=== PATIENT | male | born 1960 | race African-American/Black ===

== ENCOUNTER 2017-10-05 12:12 | Emergency (ER) | payer MEDICAID, OTHER ==
[~2017-10-05] VITALS: Ht 175.3 cm; Wt 96.2 kg
[2017-10-05 14:23] LABS: Urine Bacteria NONE SEEN /hpf (None Seen); Urine Blood Negative /uL (Negative); Urine Mucus FEW (None Seen); Urine Specific Gravity 1.028 (1.001-1.035); Urine WBC 8 /hpf (0 - 3)
[2017-10-05 14:46] LABS: Alcohol, Urine < 3.0 mg/dL (0-5); Amphetamine Screen, Urine NEGATIVE (NEGATIVE); Barbiturate Scree,Urine NEGATIVE (NEGATIVE); Benzodiazephine Screen, Urine NEGATIVE (NEGATIVE); Cannabinoid Screen, Urine POSITIVE (NEGATIVE); Cocaine Screen, Urine POSITIVE (NEGATIVE); Opiate Scree,Urine NEGATIVE (NEGATIVE); Phencyclidine Screen, Urine NEGATIVE (NEGATIVE)
[2017-10-05 14:49] LABS: Basophils # (auto) 0 uL; Basophils % (auto) 0.8 % (0.0-2.0); Eosinophils # (auto) 0 uL; Eosinophils % (auto) 0.6 % (0.0-7.0); Hematocrit 46.7 % (41.0-53.0); Hemoglobin 15.9 g/dL (13.5-17.5); Lymphocytes # (auto) 2.1 uL; Lymphocytes % (auto) 41.3 % (10.0-50.0); Mean Corpuscular Hemoglobin 30.6 pg (28.0-32.0); Mean Corpuscular Hgb Conc. 34.1 g/dL (32.0-36.0); Mean Corpuscular Volume 89.7 fL (80.0-100.0); Monocytes # (auto) 0.5 uL; Monocytes % (auto) 10.3 % (0.0-12.0); Neutrophils # (auto) 2.4 uL; Nucleated Red Blood Cells % 0.1 %; Platelet Count (auto) 166 10^3/uL (140-450); White Blood Cell 5.1 10^3/uL (4.4-10.8)
[2017-10-05 15:08] LABS: Albumin 3.6 g/dL (3.4-5.0); BUN/Creatinine Ratio 12.4; Calcium 8.3 mg/dL (8.5-10.1); Potassium 4.3 mmol/L (3.5-5.1)
[2017-10-05 15:17] LABS: Bilirubin, Total 0.9 mg/dL (0.2-1.0); Total Protein 8.1 g/dL (6.4-8.2)
[2017-10-05 23:00] VITALS: BP 120/71
[2017-10-06] MEDS ORDERED: MAGNESIUM CITRATE SOLUTION 300 ML BTL PO ONE (01:00)
== END 2017-10-06 01:58 | disposition home or self-care (01) ==
LOC: ER 12:16
DX: M47.892 Other spondylosis, cervical region (principal); M54.12 Radiculopathy, cervical region; K29.00 Acute gastritis without bleeding; M48.02 Spinal stenosis, cervical region; K59.00 Constipation, unspecified; F17.210 Nicotine dependence, cigarettes, uncomplicated; F12.10 Cannabis abuse, uncomplicated; F14.10 Cocaine abuse, uncomplicated
CPT/HCPCS: 36415; 70450; 72125; 74176; 80053; 80307; 81001; 83690; 85025; 85379; 93005

== ENCOUNTER 2018-03-09 14:48 | Emergency (ER) | payer MEDICAID ==
[~2018-03-09] VITALS: Ht 175.3 cm; Wt 98.0 kg
[2018-03-09 15:35] LABS: Basophils # (auto) 0 uL; Basophils % (auto) 0.4 % (0.0-2.0); Eosinophils # (auto) 0 uL; Eosinophils % (auto) 0.8 % (0.0-7.0); Hematocrit 44.6 % (41.0-53.0); Hemoglobin 14.7 g/dL (13.5-17.5); Lymphocytes # (auto) 2.8 uL; Lymphocytes % (auto) 48.9 % (10.0-50.0); Mean Corpuscular Hemoglobin 29.6 pg (28.0-32.0); Mean Corpuscular Hgb Conc. 32.9 g/dL (32.0-36.0); Monocytes # (auto) 0.7 uL; Monocytes % (auto) 11.5 % (0.0-12.0); Neutrophils # (auto) 2.2 uL; Neutrophils % (auto) 38.4 % (37.0-80.0); Nucleated Red Blood Cells % 0.1 %; Platelet Count (auto) 160 10^3/uL (140-450); Red Blood Cells 4.96 10^6/uL (4.5-5.90); Red Cell Distribution Width 14.2 % (11.8-14.3); White Blood Cell 5.8 10^3/uL (4.4-10.8)
[2018-03-09 15:40] LABS: INR 0.97 (0.9-1.15); Partial Thromboplastin Time 27.1 sec (23.78-33.04); Prothrombin Time 10.4 sec (9.27-12.13)
[2018-03-09 15:44] LABS: Blood Urea Nitrogen 18 mg/dL (7-18); Chloride 108 mmol/L (98-107); Sodium 142 mmol/L (136-145)
[2018-03-09 15:50] LABS: Alanine Aminotransferase 38 U/L (16-61); Albumin 3.3 g/dL (3.4-5.0); Alkaline Phosphatase 90 U/L (45-117); Anion Gap 2 (5-15); Aspartate Aminotransferase 32 U/L (15-37); BUN/Creatinine Ratio 16.2; Bilirubin, Total 0.6 mg/dL (0.2-1.0); Carbon Dioxide 32 mmol/L (21-32); GFR African American > 60 mL/min; GFR Non-African American > 60 mL/min; Glucose 94 mg/dL (74-106); Total Protein 7.1 g/dL (6.4-8.2)
[2018-03-09 17:21] VITALS: BP 151/106
== END 2018-03-09 17:22 | disposition home or self-care (01) ==
LOC: ER 14:51
DX: K92.1 Melena (principal); F17.210 Nicotine dependence, cigarettes, uncomplicated; Z85.038 Personal history of other malignant neoplasm of large intestine
CPT/HCPCS: 36415; 80053; 85025; 85610; 85730

== ENCOUNTER 2022-06-08 11:03 | Inpatient (IN) | payer MEDICAID ==
[~2022-06-08] VITALS: Ht 175.9 cm; Wt 93.2 kg
[2022-06-08] MEDS ORDERED: ONDANSETRON HCL 4 MG/2 ML VIAL IV ONE (11:30)
[2022-06-08] MEDS ORDERED: PANTOPRAZOLE 40 MG/10 ML VIAL INJ IV ONE ×2 (11:30→17:00)
[2022-06-08] MEDS ORDERED: SODIUM CHLORIDE 0.9% 1,000 ML IVB ONE (11:30)
[2022-06-08 11:58] LABS: Basophils # (auto) 0 10 ^3/uL (0-0.2); Basophils % (auto) 0.6 % (0.0-2.0); Eosinophils # (auto) 0 10 ^3/uL (0-0.8); Eosinophils % (auto) 0.7 % (0.0-7.0); Hemoglobin 15.2 g/dL (13.5-17.5); Lymphocytes # (auto) 1.9 10 ^3/uL (0.4-5.4); Lymphocytes % (auto) 42.6 % (10.0-50.0); Mean Corpuscular Hemoglobin 28.8 pg (28.0-32.0); Mean Corpuscular Hgb Conc. 33.1 g/dL (32.0-36.0); Mean Corpuscular Volume 86.9 fL (80.0-100.0); Monocytes # (auto) 0.4 10 ^3/uL (0-1.3); Neutrophils # (auto) 2.1 10 ^3/uL (1.6-8.6); Neutrophils % (auto) 48.1 % (37.0-80.0); Nucleated Red Blood Cells % 0.2 %; Red Cell Distribution Width 14.9 % (11.8-14.3); White Blood Cell 4.4 10^3/uL (4.4-10.8)
[2022-06-08 11:58] LABS: Urine WBC None Seen /hpf (0 - 3)
[2022-06-08 12:07] LABS: Urine Bacteria NONE SEEN /hpf (None Seen); Urine Blood Negative /uL (Negative); Urine Specific Gravity 1.023 (1.001-1.035)
[2022-06-08 12:16] LABS: Albumin 3.7 g/dL (3.4-5.0); Calcium 9.4 mg/dL (8.5-10.1); Potassium 4.5 mmol/L (3.5-5.1)
[2022-06-08 12:20] LABS: BUN/Creatinine Ratio 17.2 (10.0-20.0); Bilirubin, Total 0.5 mg/dL (0.2-1.0); Total Protein 7.3 g/dL (6.4-8.2)
[2022-06-08] MEDS ORDERED: MORPHINE SULFATE 4 MG/ML SYR/VIAL IV ONE (12:45)
[2022-06-08] MEDS ORDERED: CLON0.1T PO (16:59)
[2022-06-08] MEDS ORDERED: LOSA-69 PO (16:59)
[2022-06-08] MEDS ORDERED: AMLO-489 PO (16:59)
[2022-06-08] MEDS ORDERED: ONDANSETRON HCL 4 MG/2 ML VIAL IV PRN (17:00)
[2022-06-08] MEDS ORDERED: hydrALAZINE HCL 20 MG/ML VL IV PRN (17:00)
[2022-06-08] MEDS ORDERED: IPRATROPIUM BROM 0.5 MG/2.5ML INH SOL NEB PRN (17:15)
[2022-06-08] MEDS ORDERED: ALBUTEROL SULF 2.5 MG/0.5ML(0.5%) NEB SOLN NEB PRN (17:15)
[2022-06-08 17:42] LABS: Cholesterol 169 mg/dL (< 200); HDL Cholesterol 54 mg/dL (40-59); LDL Cholesterol 100 mg/dL (< 100); Triglycerides 89 mg/dL (< 150)
[2022-06-08 19:28] VITALS: BP 146/90
[2022-06-08] MEDS: SODIUM CHLORIDE 0.9% 1,000 ML IV SCH (19:42)
[2022-06-09] MEDS: amLODIPine BESYLATE 5 MG TAB PO SCH ×3 (00:09→22:01)
[2022-06-09] MEDS: cloNIDine HCL 0.1 MG TAB PO SCH ×3 (00:09→13:37)
[2022-06-09] MEDS: LOSARTAN POTASSIUM 50 MG TAB PO SCH ×3 (00:09→22:15)
[2022-06-09] MEDS: SODIUM CHLORIDE 0.9% 1,000 ML IV SCH ×3 (01:05→18:54)
[2022-06-09 06:02] LABS: Hematocrit 42.7 % (41.0-53.0); Hemoglobin 14.2 g/dL (13.5-17.5); Mean Corpuscular Hemoglobin 28.8 pg (28.0-32.0); Mean Corpuscular Hgb Conc. 33.2 g/dL (32.0-36.0); Mean Corpuscular Volume 86.8 fL (80.0-100.0); Red Blood Cells 4.92 10^6/uL (4.5-5.90); Red Cell Distribution Width 14.5 % (11.8-14.3); White Blood Cell 4.9 10^3/uL (4.4-10.8)
[2022-06-09 06:08] LABS: Band Neutrophils % (manual) 0; Basophils % (manual) 0 (0.0-2.0); Blast Cells 0; Eosinophils % (manual) 0 (0-7); Metamyelocytes % 0; Myelocytes % 0; Promyelocytes % 0; Reactive Lymphocytes 0
[2022-06-09 06:28] LABS: Albumin 3.1 g/dL (3.4-5.0); Calcium 8.4 mg/dL (8.5-10.1)
[2022-06-09 06:33] LABS: BUN/Creatinine Ratio 16.5 (10.0-20.0); Total Protein 6.4 g/dL (6.4-8.2)
[2022-06-09 06:57] LABS: Lymphocytes % (manual) 69 (10.0-50.0); Monocytes % (manual) 6 (0-12)
[2022-06-09] MEDS: ENOXAPARIN SOD 40 MG/0.4 ML SYRINGE SC SCH (10:00)
[2022-06-09] MEDS: PANTOPRAZOLE 40 MG/10 ML VIAL INJ IV SCH (10:13)
[2022-06-09] MEDS: NICOTINE 7MG/24HR TOPICAL PATCH TD SCH (10:15)
[2022-06-09 13:30] VITALS: BP 115/85
[2022-06-09] MEDS ORDERED: FLUO20CA90 PO (14:05)
[2022-06-09] MEDS ORDERED: OMEP10CA58 PO (14:05)
[2022-06-09] MEDS ORDERED: ALBU108A5 INH (14:05)
[2022-06-09] MEDS ORDERED: FLU220IH (14:05)
[2022-06-09] MEDS ORDERED: QUET50TA81 PO (14:05)
[2022-06-09] MEDS ORDERED: BACL10TA PO (14:05)
[2022-06-09 17:00] VITALS: BP 128/84
[2022-06-09] MEDS: MORPHINE SULFATE INJ 2 MG/ml SYRG IV PRN (18:54)
[2022-06-09 22:00] VITALS: BP 124/83
[2022-06-10] MEDS: SODIUM CHLORIDE 0.9% 1,000 ML IV SCH ×2 (01:00→10:51)
[2022-06-10 05:00] VITALS: BP 107/82
[2022-06-10 08:45] VITALS: BP 122/81
[2022-06-10] MEDS: NICOTINE 7MG/24HR TOPICAL PATCH TD SCH (10:52)
[2022-06-10] MEDS: ENOXAPARIN SOD 40 MG/0.4 ML SYRINGE SC SCH (10:52)
[2022-06-10] MEDS: PANTOPRAZOLE 40 MG/10 ML VIAL INJ IV SCH (10:53)
[2022-06-10] MEDS: MORPHINE SULFATE INJ 2 MG/ml SYRG IV PRN (10:56)
[2022-06-10] MEDS: LOSARTAN POTASSIUM 50 MG TAB PO SCH (10:57)
[2022-06-10] MEDS: amLODIPine BESYLATE 5 MG TAB PO SCH (10:57)
[2022-06-10] MEDS: cloNIDine HCL 0.1 MG TAB PO SCH (10:58)
[2022-06-10] MEDS ORDERED: AMLO-489 PO (12:30)
[2022-06-10] MEDS ORDERED: QUET50TA81 PO (12:30)
[2022-06-10] MEDS ORDERED: OMEP10CA58 PO (12:30)
[2022-06-10] MEDS ORDERED: LOSA-69 PO (12:30)
[2022-06-10] MEDS ORDERED: BACL10TA PO (12:30)
[2022-06-10] MEDS ORDERED: CLON0.1T PO (12:30)
[2022-06-10] MEDS ORDERED: HYDR-4902 PO (12:31)
[2022-06-10 12:51] VITALS: BP 129/87
[2022-06-10 16:06] VITALS: BP 135/86
[2022-06-10 16:13] VITALS: BP 129/87
== END 2022-06-10 17:00 | disposition home or self-care (01) ==
LOC: ER 11:03 → TELE 16:59 → TELE-WESTW 06-09 13:19
PROVIDERS: ADMIT Registered Nurse; ATTEND Internal Medicine
DX: K80.20 Calculus of gallbladder without cholecystitis without obstruction (principal); N17.9 Acute kidney failure, unspecified; R19.7 Diarrhea, unspecified; E66.9 Obesity, unspecified; I12.9 Hypertensive chronic kidney disease with stage 1 through stage 4 chronic kidney disease, or unspecified chronic kidney disease; J45.909 Unspecified asthma, uncomplicated; N18.30 Chronic kidney disease, stage 3 unspecified; Z68.30 Body mass index [BMI] 30.0-30.9, adult; Z79.899 Other long term (current) drug therapy; Z72.0 Tobacco use; Z71.6 Tobacco abuse counseling
CPT/HCPCS: 36415; 76705; 80053; 80061; 81001; 83036; 83690; 84443; 84484; 85007; 85025; 85027; 87340; 93005; 96361; 96374; 96375; 96376; C9113; G0378; J2405

== ENCOUNTER 2022-09-28 12:06 | Inpatient (IN) | payer MEDICAID ==
[~2022-09-28] VITALS: Ht 175.3 cm; Wt 95.5 kg
[~2022-09-28 12:06] MED LIST: ALBU108A5 INH; AMLO1TAB22 PO; BACL10TA PO; CLON0.1T PO; FLU220IH; FLUO20CA90 PO; HYDR-4902 PO; LOSA50TA46 PO; OMEP10CA5 PO; QUET50TA81 PO
[2022-09-28] MEDS ORDERED: PANTOPRAZOLE 40 MG/10 ML VIAL INJ IV ONE (12:15)
[2022-09-28] MEDS ORDERED: ONDANSETRON HCL 4 MG/2 ML VIAL IV ONE (12:15)
[2022-09-28] MEDS ORDERED: MORPHINE SULFATE 4 MG/ML SYR/VIAL IV ONE (12:15)
[2022-09-28] MEDS ORDERED: SODIUM CHLORIDE 0.9% 1,000 ML IVB ONE (12:15)
[2022-09-28 13:14] LABS: Basophils # (auto) 0 10 ^3/uL (0-0.2); Basophils % (auto) 0.5 % (0.0-2.0); Eosinophils # (auto) 0 10 ^3/uL (0-0.8); Eosinophils % (auto) 0.5 % (0.0-7.0); Hematocrit 45.2 % (41.0-53.0); Hemoglobin 15.1 g/dL (13.5-17.5); Lymphocytes # (auto) 2.2 10 ^3/uL (0.4-5.4); Lymphocytes % (auto) 43.2 % (10.0-50.0); Mean Corpuscular Hemoglobin 29.2 pg (28.0-32.0); Mean Corpuscular Hgb Conc. 33.3 g/dL (32.0-36.0); Mean Corpuscular Volume 87.6 fL (80.0-100.0); Monocytes # (auto) 0.5 10 ^3/uL (0-1.3); Monocytes % (auto) 9.1 % (0.0-12.0); Neutrophils # (auto) 2.4 10 ^3/uL (1.6-8.6); Neutrophils % (auto) 46.7 % (37.0-80.0); Nucleated Red Blood Cells % 0.2 %; Red Blood Cells 5.17 10^6/uL (4.5-5.90); Red Cell Distribution Width 15.3 % (11.8-14.3); White Blood Cell 5.2 10^3/uL (4.4-10.8)
[2022-09-28 13:30] LABS: Albumin 3.5 g/dL (3.4-5.0); Calcium 8.6 mg/dL (8.5-10.1); Potassium 3.9 mmol/L (3.5-5.1)
[2022-09-28 13:31] LABS: INR 1.04 (0.9-1.15); Partial Thromboplastin Time 28.8 SEC (24.5-34.5); Prothrombin Time 10.9 sec (9.3-11.8)
[2022-09-28 13:33] LABS: BUN/Creatinine Ratio 14.6 (10.0-20.0); Bilirubin, Total 0.5 mg/dL (0.2-1.0); Total Protein 7.2 g/dL (6.4-8.2)
[2022-09-28 14:31] LABS: Urine Bacteria NONE SEEN /hpf (None Seen); Urine Blood Negative /uL (Negative); Urine Clarity Clear (Clear); Urine Color Yellow (Yellow); Urine Mucus FEW (None Seen); Urine Protein, UAD TRACE (Negative); Urine Specific Gravity 1.028 (1.001-1.035); Urine WBC 7 /hpf (0 - 3); Urine pH 5.5 (5.0-8.0)
[2022-09-28] MEDS ORDERED: AMPICILLIN & SULBACTAM SODIUM 3 GM in SODIUM CHL 0.9% 100 ML IV SCH (16:30)
[2022-09-28] MEDS ORDERED: LACTATED RINGER'S 1,000 ML IV ONE (16:30)
[2022-09-28] MEDS ORDERED: ACETAMINOPHEN 325 MG TAB PO PRN (16:30)
[2022-09-28] MEDS ORDERED: DOCUSATE SOD 100 MG CAP PO PRN (16:30)
[2022-09-28] MEDS ORDERED: ALBUTEROL SULF 2.5 MG/0.5ML(0.5%) NEB SOLN NEB PRN (16:45)
[2022-09-28] MEDS ORDERED: IPRATROPIUM BROM 0.5 MG/2.5ML INH SOL NEB PRN (16:45)
[2022-09-28 20:20] VITALS: PULSE 20; RESP 20; O2SAT 94
[2022-09-28] MEDS: ONDANSETRON HCL 4 MG/2 ML VIAL IV PRN (20:30)
[2022-09-28] MEDS: MORPHINE SULFATE INJ 2 MG/ml SYRG IV PRN (20:30)
[2022-09-28] MEDS: cloNIDine HCL 0.1 MG TAB PO SCH (22:19)
[2022-09-28] MEDS: amLODIPine BESYLATE 5 MG TAB PO SCH (22:20)
[2022-09-28] MEDS: LOSARTAN POTASSIUM 50 MG TAB PO SCH (22:20)
[2022-09-28 22:35] VITALS: BP 127/92; PULSE 83; RESP 20; TEMP 98.4; O2SAT 95
[2022-09-28] MEDS ORDERED: PIPERACILLIN-TAZOB 3.375GM 100 ML IV ONE (23:15)
[2022-09-29] MEDS: MORPHINE SULFATE INJ 2 MG/ml SYRG IV PRN ×3 (05:17→15:20)
[2022-09-29] MEDS: ONDANSETRON HCL 4 MG/2 ML VIAL IV PRN ×3 (05:18→15:20)
[2022-09-29 05:44] LABS: Basophils # (auto) 0 10 ^3/uL (0-0.2); Basophils % (auto) 0.9 % (0.0-2.0); Eosinophils # (auto) 0 10 ^3/uL (0-0.8); Eosinophils % (auto) 0.9 % (0.0-7.0); Hematocrit 41.6 % (41.0-53.0); Hemoglobin 13.8 g/dL (13.5-17.5); Lymphocytes # (auto) 2.7 10 ^3/uL (0.4-5.4); Lymphocytes % (auto) 53.1 % (10.0-50.0); Mean Corpuscular Hemoglobin 29.1 pg (28.0-32.0); Mean Corpuscular Hgb Conc. 33.2 g/dL (32.0-36.0); Mean Corpuscular Volume 87.7 fL (80.0-100.0); Monocytes # (auto) 0.4 10 ^3/uL (0-1.3); Monocytes % (auto) 8.4 % (0.0-12.0); Neutrophils # (auto) 1.8 10 ^3/uL (1.6-8.6); Neutrophils % (auto) 36.7 % (37.0-80.0); Nucleated Red Blood Cells % 0.2 %; Red Blood Cells 4.74 10^6/uL (4.5-5.90); Red Cell Distribution Width 15.1 % (11.8-14.3)
[2022-09-29] MEDS: HYDROcodone-ACET 5/325MG TAB PO PRN ×2 (05:46→22:16)
[2022-09-29 06:00] LABS: Albumin 3.2 g/dL (3.4-5.0); Potassium 4.1 mmol/L (3.5-5.1)
[2022-09-29] MEDS ORDERED: PIPERACILLIN-TAZOB 3.375GM 100 ML IV SCH (06:00)
[2022-09-29 06:07] LABS: BUN/Creatinine Ratio 12.1 (10.0-20.0); Bilirubin, Total 0.4 mg/dL (0.2-1.0); Calcium 8.3 mg/dL (8.5-10.1); Total Protein 6.8 g/dL (6.4-8.2)
[2022-09-29] MEDS ORDERED: KETOROLAC TROMETH 30 MG/ML 1ML VIAL IV ONE (07:00)
[2022-09-29 07:16] VITALS: O2SAT 98
[2022-09-29 07:33] VITALS: PULSE 58; RESP 14; O2SAT 97
[2022-09-29] MEDS: cloNIDine HCL 0.1 MG TAB PO SCH ×2 (10:00→22:15)
[2022-09-29] MEDS: amLODIPine BESYLATE 5 MG TAB PO SCH ×2 (10:00→22:16)
[2022-09-29] MEDS ORDERED: PANTOPRAZOLE 40 MG/10 ML VIAL INJ IV SCH (10:00)
[2022-09-29] MEDS: LOSARTAN POTASSIUM 50 MG TAB PO SCH ×2 (10:00→22:16)
[2022-09-29] MEDS: D5W/SOD CHL 0.45%/KCL 20MEQ 1,000 ML IV SCH ×2 (10:02→15:50)
[2022-09-29] MEDS: metroNIDAZOLE 500MG/100ML 100 ML IV SCH ×2 (15:09→22:14)
[2022-09-29 18:50] VITALS: O2SAT 97
[2022-09-29 22:00] VITALS: BP 120/78; PULSE 56; RESP 17; TEMP 97.6; O2SAT 95
[2022-09-29 22:16] VITALS: PULSE 56; RESP 17; O2SAT 95
[2022-09-30] MEDS: D5W/SOD CHL 0.45%/KCL 20MEQ 1,000 ML IV SCH ×3 (00:56→16:50)
[2022-09-30] MEDS: MORPHINE SULFATE INJ 2 MG/ml SYRG IV PRN ×3 (04:03→21:07)
[2022-09-30 05:00] VITALS: BP 107/76; PULSE 67; RESP 18; TEMP 97.5; O2SAT 97
[2022-09-30] MEDS: metroNIDAZOLE 500MG/100ML 100 ML IV SCH ×3 (05:35→21:04)
[2022-09-30 09:16] LABS: Hematocrit 42.5 % (41.0-53.0); Hemoglobin 13.8 g/dL (13.5-17.5); Mean Corpuscular Hemoglobin 28.6 pg (28.0-32.0); Mean Corpuscular Hgb Conc. 32.5 g/dL (32.0-36.0); Mean Corpuscular Volume 87.9 fL (80.0-100.0); Red Blood Cells 4.83 10^6/uL (4.5-5.90); Red Cell Distribution Width 15.2 % (11.8-14.3)
[2022-09-30 09:17] LABS: Potassium 4.2 mmol/L (3.5-5.1)
[2022-09-30 09:18] LABS: Band Neutrophils % (manual) 0; Basophils % (manual) 0 (0.0-2.0); Blast Cells 0; Eosinophils % (manual) 0 (0-7); Metamyelocytes % 0; Myelocytes % 0; Promyelocytes % 0; Reactive Lymphocytes 0
[2022-09-30 09:23] LABS: BUN/Creatinine Ratio 13.1 (10.0-20.0)
[2022-09-30 09:35] LABS: Lymphocytes % (manual) 58 (10.0-50.0); Monocytes % (manual) 9 (0-12)
[2022-09-30 09:36] LABS: Platelet Estimate Adequate
[2022-09-30] MEDS ORDERED: ceFAZolin 1GM/50ML 100 ML IV ONE (10:05)
[2022-09-30] MEDS: cloNIDine HCL 0.1 MG TAB PO SCH ×2 (10:10→21:06)
[2022-09-30] MEDS: LOSARTAN POTASSIUM 50 MG TAB PO SCH ×2 (10:10→21:05)
[2022-09-30] MEDS: cefTRIAXone 1GM/50ML D5W 50 ML IV SCH (10:10)
[2022-09-30] MEDS: amLODIPine BESYLATE 5 MG TAB PO SCH ×2 (10:10→21:05)
[2022-09-30] MEDS: PANTOPRAZOLE 40 MG TAB PO SCH (10:10)
[2022-09-30] MEDS ORDERED: LIDOCAINE 1% HCL (LOCAL ANESTH.) INJ 20ML MDV ONE (10:26)
[2022-09-30] MEDS ORDERED: MIDAZOLAM HCL 2MG/2ML 2ml VIAL (1mg/ml) ONE (10:30)
[2022-09-30] MEDS ORDERED: MEPERIDINE HCL (50 MG/ML) 1 ML VIAL ONE (10:30)
[2022-09-30] MEDS ORDERED: fentaNYL CITRATE 100 MCG/2 ML VL ONE (10:30)
[2022-09-30] MEDS ORDERED: PROPOFOL 10 MG/ML 20 ML IV ONE (11:05)
[2022-09-30] MEDS ORDERED: ePHEDrine SULFATE 50 MG/ML AMP IV PRN (11:15)
[2022-09-30] MEDS ORDERED: LABETALOL HCL 5 MG/ML 4ML SYRINGE IV PRN (11:15)
[2022-09-30] MEDS ORDERED: MORPHINE SULFATE 4 MG/ML SYR/VIAL IV PRN (11:15)
[2022-09-30] MEDS ORDERED: MIDAZOLAM HCL 2MG/2ML 2ml VIAL (1mg/ml) IV PRN (11:15)
[2022-09-30] MEDS ORDERED: ONDANSETRON HCL 4 MG/2 ML VIAL IV PRN (11:15)
[2022-09-30] MEDS: HYDROcodone-ACET 5/325MG TAB PO PRN (12:45)
[2022-09-30] MEDS: HYDROmorphone HCL 2 MG/ML VL/or syr IV PRN ×2 (12:46→13:00)
[2022-09-30 17:00] VITALS: BP 128/86; PULSE 76; RESP 18; TEMP 97.8; O2SAT 98
[2022-09-30] MEDS ORDERED: IBUP-1456 PO (19:42)
[2022-09-30] MEDS ORDERED: FAMO-12 PO (19:43)
[2022-09-30 20:00] VITALS: PULSE 97; RESP 18
[2022-09-30 21:58] VITALS: BP 130/79; PULSE 91; RESP 16; TEMP 97.6; O2SAT 90
[2022-09-30 22:51] VITALS: O2SAT 94
[2022-10-01] VITALS (9 sets, daily range): BP systolic 118–157; BP diastolic 72–92; PULSE 56–89; RESP 17–19; TEMP 97.6–98.3; O2SAT 93–100
[2022-10-01] MEDS: MORPHINE SULFATE INJ 2 MG/ml SYRG IV PRN ×2 (01:31→07:05)
[2022-10-01] MEDS: D5W/SOD CHL 0.45%/KCL 20MEQ 1,000 ML IV SCH ×3 (01:35→17:50)
[2022-10-01] MEDS: metroNIDAZOLE 500MG/100ML 100 ML IV SCH ×2 (05:23→14:38)
[2022-10-01 05:51] LABS: Basophils # (auto) 0.1 10 ^3/uL (0-0.2); Basophils % (auto) 0.6 % (0.0-2.0); Eosinophils # (auto) 0 10 ^3/uL (0-0.8); Hematocrit 39.3 % (41.0-53.0); Hemoglobin 13.1 g/dL (13.5-17.5); Lymphocytes # (auto) 1.3 10 ^3/uL (0.4-5.4); Lymphocytes % (auto) 14.7 % (10.0-50.0); Mean Corpuscular Hemoglobin 29.2 pg (28.0-32.0); Mean Corpuscular Hgb Conc. 33.5 g/dL (32.0-36.0); Mean Corpuscular Volume 87.2 fL (80.0-100.0); Monocytes # (auto) 0.7 10 ^3/uL (0-1.3); Monocytes % (auto) 8.1 % (0.0-12.0); Neutrophils % (auto) 76.6 % (37.0-80.0); Nucleated Red Blood Cells % 0.1 %; Red Blood Cells 4.51 10^6/uL (4.5-5.90); Red Cell Distribution Width 14.7 % (11.8-14.3); White Blood Cell 9.1 10^3/uL (4.4-10.8)
[2022-10-01 07:40] LABS: BUN/Creatinine Ratio 11.2 (10.0-20.0); Calcium 8.3 mg/dL (8.5-10.1); Potassium 4.4 mmol/L (3.5-5.1)
[2022-10-01] MEDS ORDERED: METR-344 PO (09:54)
[2022-10-01] MEDS: PANTOPRAZOLE 40 MG TAB PO SCH (10:41)
[2022-10-01] MEDS: cefTRIAXone 1GM/50ML D5W 50 ML IV SCH (10:41)
[2022-10-01] MEDS: LOSARTAN POTASSIUM 50 MG TAB PO SCH (10:41)
[2022-10-01] MEDS: amLODIPine BESYLATE 5 MG TAB PO SCH (10:41)
[2022-10-01] MEDS: cloNIDine HCL 0.1 MG TAB PO SCH (10:41)
[2022-10-01] MEDS: ONDANSETRON HCL 4 MG/2 ML VIAL IV PRN (10:42)
[2022-10-01] MEDS ORDERED: HYDR-4902 PO (12:53)
== END 2022-10-01 18:25 | disposition home or self-care (01) | DRG 263 ==
LOC: ER 12:06 → EDBD 12:06 → OVERFLOW 16:23 → EAST 09-29 19:53
PROVIDERS: ADMIT Internal Medicine Pulmonary Disease
PROC: 0FT44ZZ Resection of Gallbladder, Percutaneous Endoscopic Approach (ICD-10-PCS; principal; 2022-09-30 10:49)
DX: K80.62 Calculus of gallbladder and bile duct with acute cholecystitis without obstruction (principal); E44.1 Mild protein-calorie malnutrition; N17.9 Acute kidney failure, unspecified; N18.30 Chronic kidney disease, stage 3 unspecified; E66.9 Obesity, unspecified; I12.9 Hypertensive chronic kidney disease with stage 1 through stage 4 chronic kidney disease, or unspecified chronic kidney disease; N30.00 Acute cystitis without hematuria; Z68.31 Body mass index [BMI] 31.0-31.9, adult; F17.210 Nicotine dependence, cigarettes, uncomplicated; J45.909 Unspecified asthma, uncomplicated; Z96.651 Presence of right artificial knee joint; Z71.6 Tobacco abuse counseling; Z71.3 Dietary counseling and surveillance
CPT/HCPCS: 36415; 71045; 76705; 78226; 80048; 80053; 80061; 81001; 82247; 82977; 83690; 85007; 85025; 85027; 85610; 85730; 86850; 86900; 86901; 87086; 96361; 96374; 96375; C9113; G0378; J0690; J0696; J1885; J2001; J2250; J2405; J2543; J2704; J3490

== ENCOUNTER 2024-07-21 21:33 | Inpatient (IN) | payer MEDICAID ==
[~2024-07-21] VITALS: Ht 175.3 cm; Wt 86.7 kg
[~2024-07-21 21:33] MED LIST changes: +FAMO-12 PO; +FLUO-470 PO; -FLUO20CA90 PO; +IBUP-1456 PO; +LOSA-534 PO; -LOSA50TA46 PO; +METR-344 PO
--- NOTE | 2024-07-21 21:47 | ED.PDOC ---
HPI (NEURO) HPI Comments 63-year-old male came to ER due to weakness. At about 3:00 p.m. today (6 hours ago), patient started having right facial numbness, associated with right sided weakness and numbness. Difficulty ambulating. Denies any headaches or dizziness. Patient felt nauseated and had an episode of hematemesis. Persistence and worsening of right sided weakness/ numbness prompted check up. Upon arrival, blood pressure was 183/129 mmHg Chief Complaint: Weakness Time Seen by MD: 21:46 Primary Care Provider: RAGHAV Aldana Notes: Nurses Notes Information Source: Patient Mode of Arrival: Wheelchair Severity: Moderate Dizziness/Weakness Severity: Unable to do activities Headache Severity: Mild Timing: Hours Duration: Since onset Weakness Location: (R) Sided Numbness Location: (R) Sided Onset: At rest Circumstances: Spontaneous Symptoms: Weakness, Numbness Associated Signs and Symptoms: Weakness, Numbness Past Medical History PAST MEDICAL HISTORY: Asthma, Gallstones, HTN Surgical History (Other): Whipple procedure Family History Family History: Reviewed,noncontributory to illness, Family hx of Cancer Social History Smoker: Cigarettes Alcohol: Occasionally Drugs: Denies Drug Use Lives In: Home Constitutional: denies: chills, diaphoresis, fatigue, fever, malaise, sweats, weakness, others EENTM: denies: blurred vision, double vision, ear bleeding, ear discharge, ear drainage, ear pain, ear ringing, eye pain, eye redness, hearing loss, mouth pain, mouth swelling, nasal discharge, nose bleeding, nose congestion, nose pain, photophobia, tearing, throat pain, throat swelling, voice changes, others Respiratory: denies: cough, hemoptysis, orthopnea, SOB at rest, shortness of breath, SOB with excertion, stridor, wheezing, others Cardiovascular: denies: chest pain, dizzy spells, diaphoresis, Dyspnea on exertion, edema, irregular heart beat, left arm pain, lightheadedness, palpitations, PND, syncope, others Gastrointestinal: denies: abdomen distended, abdominal pain, blood streaked bowels, constipated, diarrhea, dysphagia, difficulty swallowing, hematemesis, melena, nausea, poor appetite, poor fluid intake, rectal bleeding, rectal pain, vomiting, others Genitourinary: denies: burning, dysuria, flank pain, frequency, hematuria, incontinence, penile discharge, penile sore, pain, testicle pain, testicle swelling, urgency, others Neurological: reports: right sided numbness, right sided weakness; denies: dizziness, fainting, headache, left sided numbness, left sided weakness, numbness, paresthesia, pre-existing deficit, seizure, speech problems, tingling, tremors, weakness, others Musculoskeletal: denies: back pain, gout, joint pain, joint swelling, muscle pain, muscle stiffness, neck pain, others Integumetry: denies: bruises, change in color, change in hair/nails, dryness, laceration, lesions, lumps, rash, wounds, others Allergic/Immunocompromised: denies: Difficulty Healing, Frequent Infections, Hives, Itching, others Hematologic/Lymphatic: denies: anemia, blood clots, easy bleeding, easy bruising, swollen glands, others Endocrine: denies: excessive hunger, excessive sweating, excessive thirst, excessive urination, flushing, intolerance to cold, intolerance to heat, unexplained weight gain, unexplained weight loss, others Psychiatric: denies: anxiety, bipolar disorder, depression, hopeless, panic disorder, schizophrenia, sleepless, suicidal, others Physical Exam General Appearance: No Apparent Distress, Normal HEENT: Normal ENT Inspection, Pharynx Normal, TMs Normal Neck: Full Range of Motion, Non-Tender, Normal, Normal Inspection Respiratory: Chest Non-Tender, Lungs Clear, No Accessory Muscle Use, No Respiratory Distress, Normal Breath Sounds Cardiovascular: No Edema, No JVD, No Murmur, No Gallop, Normal Peripheral Pulses, Regular Rate/Rhythm Breast Exam: Deferred Gastrointestinal: No Organomegaly, Non Tender, No Pulsatile Mass, Normal Bowel Sounds, Soft Genitalia: Deferred Pelvic: Deferred Rectal: Deferred Extremities: No calf tenderness, Normal capillary refill, Normal inspection, Normal range of motion, Non-tender, No pedal edema Musculoskeletal : Apperance: Normal Neurologic: Alert, systems security consultant II-XII nml as Tested, No Motor Deficits, Normal Affect, Normal Mood, No Sensory Deficits Cerebellar Function: Normal Reflexes: Normal Skin: Dry, Normal Color, Warm Lymphatic: No Adenopathy Was a procedure done? Was a procedure done?: No Differential Diagnosis (SZ) General Weakness: CVA, Electrolyte imbalance, Encephalopathy, Hypoglycemia, TIA X-Ray, Labs, Meds, VS Vital Signs Date Time Temp Pulse Resp B/P (MAP) Pulse Ox O2 Delivery O2 Flow Rate FiO2 07/21/24 22:53 91 16 175/110 07/21/24 22:30 93 24 136/88 (104) 94 07/21/24 22:23 92 22 195/117 07/21/24 22:12 195/117 07/21/24 22:10 97.5 57 20 195/117 (143) 94 97.5 07/21/24 22:09 94 Room Air* 0 21 07/21/24 21:45 97.4 61 16 183/127 (145) 93 97.4 Lab Test 07/21/24 22:44 07/21/24 21:58 07/21/24 21:42 Range/Units Troponin I High Sensitivity 3 L 4 </=54 ng/L White Blood Count 7.9 4.4-10.8 10^3/uL Red Blood Count 5.92 H 4.5-5.90 10^6/uL Hemoglobin 17.6 H 13.5-17.5 g/dL Hematocrit 52.4 41.0-53.0 % Mean Corpuscular Volume 88.5 80.0-100.0 fL Mean Corpuscular Hemoglobin 29.8 28.0-32.0 pg Mean Corpuscular Hemoglobin Concent 33.6 32.0-36.0 g/dL Red Cell Distribution Width 14.5 H 11.8-14.3 % Platelet Count 163 140-450 10^3/uL Mean Platelet Volume 8.4 6.9-10.8 fL Neutrophils (%) (Auto) 81.3 H 37.0-80.0 % Lymphocytes (%) (Auto) 14.5 10.0-50.0 % Monocytes (%) (Auto) 3.8 0.0-12.0 % Eosinophils (%) (Auto) 0.1 0.0-7.0 % Basophils (%) (Auto) 0.3 0.0-2.0 % Neutrophils # (Auto) 6.4 1.6-8.6 10 ^3/uL Lymphocytes # (Auto) 1.1 0.4-5.4 10 ^3/uL Monocytes # (Auto) 0.3 0-1.3 10 ^3/uL Eosinophils # (Auto) 0 0-0.8 10 ^3/uL Basophils # (Auto) 0 0-0.2 10 ^3/uL Nucleated Red Blood Cells 0.1 % Prothrombin Time 10.5 9.3-11.8 sec Prothrombin Time INR 0.99 0.9-1.15 Activated Partial Thromboplast Time 28.4 24.5-34.5 SEC Sodium Level 143 136-145 mmol/L Potassium Level 4.1 3.5-5.1 mmol/L Chloride Level 105 98-107 mmol/L Carbon Dioxide Level 31 20-31 mmol/L Anion Gap 7 5-15 Blood Urea Nitrogen 17 9-23 mg/dL Creatinine 1.20 0.700-1.30 mg/dL Glomerular Filtration Rate Calc 69 >90 mL/min BUN/Creatinine Ratio 14.2 10.0-20.0 Serum Glucose 89 74-106 mg/dL Calcium Level 10.3 8.7-10.4 mg/dL Magnesium Level 2.3 1.6-2.6 mg/dL Total Bilirubin 0.9 0.2-1.0 mg/dL Aspartate Amino Transferase (AST) 20 13-40 U/L Alanine Aminotransferase (ALT) 13 7-40 U/L Alkaline Phosphatase 101 46-116 U/L B-Type Natriuretic Peptide 27.88 0-100 pg/mL Total Protein 8.6 H 5.7-8.2 g/dL Albumin 5.1 H 3.2-4.8 g/dL POC Glucose 71 70-106 mg/dl Current Medications Medications (Trade) Dose Ordered Sig/Josie Route Start Time Stop Time Status Last Admin Hydralazine HCl (Apresoline Injection) 20 mg ONCE ONCE IV 07/21/24 22:00 07/21/24 22:01 DC 07/21/24 22:12 Morphine Sulfate 4 mg ONCE ONCE IV 07/21/24 22:30 07/21/24 22:31 DC 07/21/24 22:23 Ondansetron HCl (Zofran) 4 mg ONCE ONCE IV 07/21/24 22:30 07/21/24 22:31 DC 07/21/24 22:22 Time of 1ST Reevaluation: 21:45 Reevaluation 1ST: Unchanged Consultation: Neurology Patient Education/Counseling: Diagnosis, Treatment Family Education/Counseling: No Family Present Departure 1 Departure Time of Disposition: 23:28 Impression: Primary Impression: Hemiplegia of right dominant side due to acute cerebrovascular disease Additional Impression: Hypertensive emergency Disposition: 09 ADMITTED INPATIENT Admit to: Tele Condition: Critical Discharged With: Self Comments NIH Stroke Scale/Score (NIHSS) from [employer] on 07/21/2024 RESULT SUMMARY: 11 points NIH Stroke Scale INPUTS: 1A: Level of consciousness > 0 = Alert; keenly responsive 1B: Ask month and age > 0 = Both questions right 1C: 'Blink eyes' & 'squeeze hands' > 1 = Performs 1 task 2: Horizontal extraocular movements > 0 = Normal 3: Visual cho > 0 = No visual loss 4: Facial palsy > 1 = Minor paralysis (flat nasolabial fold, smile asymmetry) 5A: Left arm motor drift > 0 = No drift for 10 seconds 5B: Right arm motor drift > 3 = No effort against gravity 6A: Left leg motor drift > 0 = No drift for 5 seconds 6B: Right leg motor drift > 3 = No effort against gravity 7: Limb Ataxia > 0 = No ataxia 8: Sensation > 1 = Mild-moderate loss: less sharp/more dull 9: Language/aphasia > 1 = Mild-moderate aphasia: some obvious changes, without significant limitation 10: Dysarthria > 0 = Normal 11: Extinction/inattention > 1 = Visual/tactile/auditory/spatial/personal inattention Right-Sided Weakness - Acute Stroke Chief Complaint: Right-sided weakness History of Present Illness: 63-year-old male presents to the Emergency Department with acute onset right- sided weakness that began approximately 6 hours prior to arrival (onset at 3:00 PM). Patient initially attempted to manage symptoms by resting at home, but with no improvement in symptoms, he presented to the ED at approximately 9:45 PM. Initial evaluation revealed an NIHSS score of 11, with significant weakness noted in both right arm and right leg. Patient was notably hypertensive on presentation with initial blood pressure of 185/135. Review of Systems: Limited by acute presentation Positive for right-sided weakness No other symptoms reported Vital Signs: Blood Pressure: 185/135 Other vital signs not documented Physical Exam: General: Alert and oriented Neurological: NIHSS score of 11 Motor: Significant weakness of right arm and right leg Lab Results: CBC: Unremarkable Chemistry Panel: Unremarkable Troponin: Normal at 4 Imaging and Other Relevant Results: MRI pending Medical Decision Making: Summary Statement: 63-year-old male presenting with acute right-sided weakness, elevated blood pressure, and NIHSS score of 11, concerning for acute stroke. Problem List: 1. Acute neurological deficit - likely stroke, 2. Hypertension (severe) Differential Diagnosis: 1. Acute ischemic stroke, 2. Hemorrhagic stroke, 3. Yaya's paralysis, 4. Complex migraine ED Course: Patient evaluated by neurology. Not a candidate for tPA due to presentation outside the treatment window (>6 hours) and severely elevated blood pressure. Treated with hydralazine for blood pressure control and aspirin. Basic labs obtained and were unremarkable. Assessment and Plan: 1. Acute Neurological Deficit - likely stroke: - Admission to hospital as recommended by neurology - MRI brain to be obtained - Further neurological testing and evaluation planned 2. Hypertension: - Initially treated with hydralazine - Continue blood pressure monitoring - Further medication adjustments as needed Billing Information: ICD-10: I63.9 - Cerebral infarction, unspecified ICD-10: I10 - Essential (primary) hypertension ICD-10: G81.90 - Hemiplegia, unspecified affecting unspecified side Critical Care Note Critical Care Time?: Yes (45 min-critical care time only) Critical care comment: Possible stroke, hypertensive urgency Total critical care time: Approximately 36 minutes Due to a high probability of clinically significant, life threatening deterioration, the patient required my highest level of preparedness to intervene emergently and I personally spent this critical care time directly and personally managing the patient. This critical care time included obtaining a history; examining the patient; pulse oximetry; ordering and review of studies; arranging urgent treatment with development of a management plan; evaluation of patient's response to treatment; frequent reassessment; and, discussions with other providers. This critical care time was performed to assess and manage the high probability of imminent, life-threatening deterioration that could result in multi-organ failure. It was exclusive of separately billable procedures and treating other patients. Stability Stability form required: No Heart Score Heart Score: Heart Score Response (Comments) Value History Slightly Suspicious 0 EKG Normal 0 Age 45-64 1 Risk Factors 1 or 2 risk factors 1 Troponin Normal limit 0 Total 2 I personally scribed for KENDRA TELLEZ MD ([email or web address]) on 07/21/24 at 21:47. Electronically submitted by John Lang ([email or web address]). KENDRA TELLEZ MD Jul 21, 2024 21:47
[2024-07-21 22:07] LABS: Basophils # (auto) 0 10 ^3/uL (0-0.2); Basophils % (auto) 0.3 % (0.0-2.0); Eosinophils # (auto) 0 10 ^3/uL (0-0.8); Eosinophils % (auto) 0.1 % (0.0-7.0); Hematocrit 52.4 % (41.0-53.0); Hemoglobin 17.6 g/dL (13.5-17.5); Lymphocytes # (auto) 1.1 10 ^3/uL (0.4-5.4); Lymphocytes % (auto) 14.5 % (10.0-50.0); Mean Corpuscular Hemoglobin 29.8 pg (28.0-32.0); Mean Corpuscular Hgb Conc. 33.6 g/dL (32.0-36.0); Mean Corpuscular Volume 88.5 fL (80.0-100.0); Monocytes # (auto) 0.3 10 ^3/uL (0-1.3); Monocytes % (auto) 3.8 % (0.0-12.0); Neutrophils # (auto) 6.4 10 ^3/uL (1.6-8.6); Neutrophils % (auto) 81.3 % (37.0-80.0); Nucleated Red Blood Cells % 0.1 %; Platelet Count (auto) 163 10^3/uL (140-450); Red Blood Cells 5.92 10^6/uL (4.5-5.90); Red Cell Distribution Width 14.5 % (11.8-14.3); White Blood Cell 7.9 10^3/uL (4.4-10.8)
[2024-07-21 22:09] VITALS: O2SAT 94
[2024-07-21] MEDS: hydrALAZINE HCL 20 MG/ML VL IV ONE (22:12)
--- NOTE | 2024-07-21 22:16 | DVH ---
CHEST RADIOGRAPH Indication: stroke Technique: Single frontal view of the chest was obtained Comparison: XY CHEST PORTABLE on DOS: 09/30/22 FINDINGS: Lines and Tubes: None Lungs: Clear Pleura: No effusion. No pneumothorax. Cardiomediastinal contours: Unremarkable Bones: Unremarkable IMPRESSION: Clear lungs.
[2024-07-21] MEDS: ONDANSETRON HCL 4 MG/2 ML VIAL IV ONE (22:22)
[2024-07-21] MEDS: MORPHINE SULFATE 4 MG/ML SYR/VIAL IV ONE (22:23)
[2024-07-21 22:24] LABS: INR 0.99 (0.9-1.15); Partial Thromboplastin Time 28.4 SEC (24.5-34.5); Prothrombin Time 10.5 sec (9.3-11.8)
--- NOTE | 2024-07-21 22:27 | DVH ---
CT BRAIN WITHOUT CONTRAST HISTORY: right hemiplegia TECHNIQUE: Axial scans were obtained from the skull base through the vertex without contrast. Sagitta l and coronal reformats were generated. One or more of the following radiation dose reduction techniq ues were used for this examination: automated exposure control, adjustment of the mA and/or kV accord ing to patient size, use of iterative reconstruction technique. COMPARISON: None FINDINGS: No acute intracranial hemorrhage or evidence of large vessel territorial infarction identified at thi s time. No midline shift. The basilar cisterns are patent. Patchy periventricular hypoattenuation no jenni bilaterally. The visualized paranasal sinuses and mastoid air cells are clear. No grossly displaced calvarial abno rmalities identified. IMPRESSION: No acute intracranial hemorrhage or evidence of large vessel territorial infarction identified at thi s time. Nonspecific periventricular white matter changes which may be sequelae of chronic microangiopathy. If there is persistent clinical concern, MRI is recommended to further evaluate.
[2024-07-21 22:39] LABS: Alanine Aminotransferase 13 U/L (7-40); Alkaline Phosphatase 101 U/L (46-116); Anion Gap 7 (5-15); Aspartate Aminotransferase 20 U/L (13-40); BUN/Creatinine Ratio 14.2 (10.0-20.0); Blood Urea Nitrogen 17 mg/dL (9-23); Calcium 10.3 mg/dL (8.7-10.4); Carbon Dioxide 31 mmol/L (20-31); Chloride 105 mmol/L (98-107); Glucose 89 mg/dL (74-106); Magnesium 2.3 mg/dL (1.6-2.6); Potassium 4.1 mmol/L (3.5-5.1); Sodium 143 mmol/L (136-145)
[2024-07-21 22:40] LABS: Bilirubin, Total 0.9 mg/dL (0.2-1.0)
[2024-07-21 22:42] LABS: Albumin 5.1 g/dL (3.2-4.8); Total Protein 8.6 g/dL (5.7-8.2)
--- NOTE | 2024-07-21 23:18 | BSKYNEURO ---
[place] [facility] Note # Demographics Consult Type: Acute Stroke Level 2 (4.5-24 hrs) Patient Location: Emergency Room First Name: JEAN Last Name: JOY Date of : 1960 Age: 63 Gender: Male Facility: [facility] Time of Initial Page (): 07/21/2024 21:51 Time of Return Call (): 07/21/2024 21:52 # HPI History: [id number] Patient is coming to the ER for right sided weakness; he was home and noticed right sided weakness and went for a nap and woke up and had persistent right sided weakness # Scores Time of exam and NIHSS (): 07/21/2024 22:32 Level of Consciousness 1a: [0] = Alert; keenly responsive LOC Questions 1b: [0] = Answers both questions correctly LOC Commands 1c: [0] = Performs both tasks correctly Best Gaze 2: [0] = Normal Visual 3: [0] = No visual loss Facial Palsy 4: [2] = Partial paralysis Motor Arm Left 5a: [0] = No drift Motor Arm Right 5b: [1] = Drift Motor Leg Left 6a: [0] = No drift Motor Leg Right 6b: [3] = No effort against gravity Limb Ataxia 7: [0] = Absent Sensory 8: [0] = Normal Best Language 9: [0] = No aphasia Dysarthria 10: [0] = Normal Extinction and Inattention 11: [0] = No abnormality NIHSS Total: 6 # Assessment Impression: - Ischemic Stroke (Acute) # Plan Thrombolytic/Intervention: Possible IA candidate Thrombolytic Exclusion: > 4.5 hours Possible IA Candidate: - CTA pending Target Blood Pressure: - SBP < 180 - SBP > 140 Labs: - hemoglobin A1c - lipid panel - comprehensive metabolic panel - CBC Imaging: (urgency: STAT): - CT Angiogram Head and CT Angiogram Neck Imaging: (urgency: routine): - MRI Brain without contrast Diagnostic Test: - echo with bubble study Therapy/Evaluation: - NPO until swallow evaluation - PT/OT evaluation Medication: - start statin with goal of LDL < 70 - Plavix 300 mg PO x1 now, then 75 mg daily x 21 days + asa 81mg x 21 days, followed by monotherapy thereafter Other: - If patient has any neurological deterioration please call me back immediately - permissive hypertension - LDL < 70 - telemetry monitoring - will need event monitor or loop recorder as outpatient if atrial fibrillation not found as inpatient - neurology referral as outpatient - I have discussed my recommendations with the referring provider Disposition: admit # Logistics Attestation of consult completion: The patient is located at: [facility]. Facility staff participated in the visit. I performed this telemedicine visit from my offsite office utilizing interactive 2 way audio and visual telecommunication technology. Total time spent in telemedicine encounter: I spent 10 minutes reviewing clinical data and/or imaging, obtaining history, examining the patient, communicating with the onsite care team, and in preparation of this report. # Demographics First Name: JEAN Last Name: JOY Facility: [facility] Yes LENCHO ANN MD Jul 21, 2024 23:18
[2024-07-22] VITALS (13 sets, daily range): BP systolic 127–174; BP diastolic 80–107; PULSE 0–108; RESP 16–20; TEMP 97.5–98.8; O2SAT 93–100
[2024-07-22] MEDS: ASPirin 81 mg TAB PO ONE (00:10)
[2024-07-22] MEDS: IOHEXOL 350 MG/ML 100ML IJ ONE (00:10)
[2024-07-22] MEDS ORDERED: DOCUSATE SOD 100 MG CAP PO PRN (01:15)
[2024-07-22] MEDS ORDERED: ALBUTEROL SULF 2.5 MG/0.5ML(0.5%) NEB SOLN NEB PRN (01:15)
[2024-07-22] MEDS ORDERED: MORPHINE SULFATE INJ 2 MG/ml SYRG IV PRN (01:15)
[2024-07-22] MEDS ORDERED: ACETAMINOPHEN 325 MG TAB PO PRN (01:15)
[2024-07-22] MEDS ORDERED: ONDANSETRON HCL 4 MG/2 ML VIAL IV PRN (01:15)
[2024-07-22] MEDS ORDERED: NITROGLYCERIN 0.4 MG SL TAB SL PRN (01:15)
--- NOTE | 2024-07-22 01:28 | DVHHP2 ---
History of Present Illness Reason for Visit: Hypertensive emergency History of Present Illness The patient is a 63-year-old male with past medical history of gallstone, asthma, and hypertension who presented to [facility] ED with complaint of right-sided weakness. Patient reports he has been experiencing right-sided weakness, associated with right-sided numbness, right facial numbness, felt nauseated, episode of hematemesis, difficulty ambulating, getting worse that prompted this visit. Patient was seen and evaluated in the ED, laboratory data shows WBC 7.9, platelets 163, sodium 143, potassium 4.1, BUN 17, creatinine 1.20, glucose 89, troponin 3, BNP 27.88, protein 8.6, albumin 5.1, blood pressure 171/107, heart rate 92, temperature 97.6 F, O2 saturation 94% on oxygen. Head CT showed no acute intracranial hemorrhage, large vessel territorial infarction identified at this time. Patient was started on IV hydralazine as needed, please see medication orders section in the computer. On my assessment, patient denies chest pain, no headache, no dizziness, no diaphoresis, currently on oxygen, no diarrhea, no nausea, no vomiting, no fever, no chills. Patient was admitted for further evaluation and medical management. Past Medical History Asthma, Gallstones, HTN Past Surgical History Whipple procedure Family History Reviewed, noncontributory to the management of this case. Past Social History The patient lives at home, smokes cigarettes, drinks alcohol occasionally, denies illicit drugs abuse. Review of Systems Constitutional: Yes: Weakness; No: Fever, Chills, Sweats, Malaise, Other Eyes: No: Pain, Vision change, Conjunctivae inflammation, Eyelid inflammation, Other, Redness ENT: No: Ear pain, Ear discharge, Nose pain, Nose discharge, Nose congestion, Mouth pain, Mouth swelling, Throat pain, Throat swelling, Other Respiratory: No: Cough, Dry, Shortness of breath, SOB with excertion, Wheezing, Hemoptysis, Pleuritic Pain, Sputum, Wheezing, Other Cardiovascular: No: Chest Pain, Palpitations, Orthopnea, Paroxysmal Noc. Dyspnea, Edema, Lt Headedness, Other Gastrointestinal: Nausea; No: Vomiting, Abdominal Pain, Diarrhea, Constipation, Melena, Hematochezia, Other Genitourinary: No Dysuria, No Frequency, No Incontinence, No Hematuria, No Retention, No Other Musculoskeletal: No: other, neck pain, shoulder pain, arm pain, back pain, hand pain, leg pain, foot pain Skin: No: Rash, Lesions, Jaundice, Bruising, Other Neurological: Weakness (Right-sided), Numbness (Right-sided), Other (Left-sided facial numbness); No: Incoordination, Change in speech, Confusion, Seizures Allergies: Coded Allergies: No Known Drug Allergy (Verified Allergy, Unknown, 10/05/17) Exam Vital Signs Vital Signs Date Time Temp Pulse Resp B/P (MAP) Pulse Ox O2 Delivery O2 Flow Rate FiO2 07/22/24 00:00 91 18 174/107 (129) 95 07/21/24 22:10 97.5 97.5 07/21/24 22:09 Room Air* 0 21 General Appearance: Alert, Oriented X3, Cooperative, No acute distress HEENT: Atraumatic, PERRLA, EOMI, Mucous membr. moist/pink Respiratory: Normal air movement Cardiovascular: Regular rate, Normal S1, Normal S2, No murmurs Abdominal: Normal bowel sounds, Soft, No tenderness, No hepatospenomegaly, No masses Extremities: No clubbing, No cyanosis, No edema, Normal pulses, No tenderness/ swelling Skin: No rashes, No breakdown, No significant lesion Neuro: Normal speech, Normal tone, Sensation intact, Cranial nerves 3-12 NL, Reflexes 2+, Other (Generalized weakness) Psych/Mental Status: Mental status NL, Mood NL Labs/Xrays Labs Test 07/21/24 22:44 07/21/24 21:58 07/21/24 21:42 Range/Units Troponin I High Sensitivity 3 L </=54 ng/L White Blood Count 7.9 4.4-10.8 10^3/uL Red Blood Count 5.92 H 4.5-5.90 10^6/uL Hemoglobin 17.6 H 13.5-17.5 g/dL Hematocrit 52.4 41.0-53.0 % Mean Corpuscular Volume 88.5 80.0-100.0 fL Mean Corpuscular Hemoglobin 29.8 28.0-32.0 pg Mean Corpuscular Hemoglobin Concent 33.6 32.0-36.0 g/dL Red Cell Distribution Width 14.5 H 11.8-14.3 % Platelet Count 163 140-450 10^3/uL Mean Platelet Volume 8.4 6.9-10.8 fL Neutrophils (%) (Auto) 81.3 H 37.0-80.0 % Lymphocytes (%) (Auto) 14.5 10.0-50.0 % Monocytes (%) (Auto) 3.8 0.0-12.0 % Eosinophils (%) (Auto) 0.1 0.0-7.0 % Basophils (%) (Auto) 0.3 0.0-2.0 % Neutrophils # (Auto) 6.4 1.6-8.6 10 ^3/uL Lymphocytes # (Auto) 1.1 0.4-5.4 10 ^3/uL Monocytes # (Auto) 0.3 0-1.3 10 ^3/uL Eosinophils # (Auto) 0 0-0.8 10 ^3/uL Basophils # (Auto) 0 0-0.2 10 ^3/uL Nucleated Red Blood Cells 0.1 % Prothrombin Time 10.5 9.3-11.8 sec Prothrombin Time INR 0.99 0.9-1.15 Activated Partial Thromboplast Time 28.4 24.5-34.5 SEC Sodium Level 143 136-145 mmol/L Potassium Level 4.1 3.5-5.1 mmol/L Chloride Level 105 98-107 mmol/L Carbon Dioxide Level 31 20-31 mmol/L Anion Gap 7 5-15 Blood Urea Nitrogen 17 9-23 mg/dL Creatinine 1.20 0.700-1.30 mg/dL Glomerular Filtration Rate Calc 69 >90 mL/min BUN/Creatinine Ratio 14.2 10.0-20.0 Serum Glucose 89 74-106 mg/dL Calcium Level 10.3 8.7-10.4 mg/dL Magnesium Level 2.3 1.6-2.6 mg/dL Total Bilirubin 0.9 0.2-1.0 mg/dL Aspartate Amino Transferase (AST) 20 13-40 U/L Alanine Aminotransferase (ALT) 13 7-40 U/L Alkaline Phosphatase 101 46-116 U/L B-Type Natriuretic Peptide 27.88 0-100 pg/mL Total Protein 8.6 H 5.7-8.2 g/dL Albumin 5.1 H 3.2-4.8 g/dL POC Glucose 71 70-106 mg/dl PATIENT: JEAN HAMILTON: [id number] UNIT: [id number] : 1960 LOC: ER ROOM / BED: / AGE / SEX: 63 / M ADM STATUS: REG ER SERVICE [id number] ORDERING PHYSICIAN: KENDRA TELLEZ MD PROCEDURE(s): CTH - STROKE CTH REASON: right hemiplegia ORDER NUMBER(s): [id number], ACCESSION NUMBER(s): [id number] CT BRAIN WITHOUT CONTRAST HISTORY: right hemiplegia TECHNIQUE: Axial scans were obtained from the skull base through the vertex without contrast. Sagittal and coronal reformats were generated. One or more of the following radiation dose reduction techniques were used for this examination: automated exposure control, adjustment of the mA and/or kV according to patient size, use of iterative reconstruction technique. COMPARISON: None FINDINGS: No acute intracranial hemorrhage or evidence of large vessel territorial infarction identified at this time. No midline shift. The basilar cisterns are patent. Patchy periventricular hypoattenuation noted bilaterally. The visualized paranasal sinuses and mastoid air cells are clear. No grossly displaced calvarial abnormalities identified. IMPRESSION: No acute intracranial hemorrhage or evidence of large vessel territorial infarction identified at this time. Nonspecific periventricular white matter changes which may be sequelae of chronic microangiopathy. If there is persistent clinical concern, MRI is recommended to further evaluate. ORDERING PHYSICIAN: KENDRA TELLEZ MD PROCEDURE(s): CXR1 - CHEST XRAY 1 VIEW REASON: stroke ORDER NUMBER(s): [id number], ACCESSION NUMBER(s): [id number] CHEST RADIOGRAPH Indication: stroke Technique: Single frontal view of the chest was obtained Comparison: XY CHEST PORTABLE on DOS: 09/30/22 FINDINGS: Lines and Tubes: None Lungs: Clear Pleura: No effusion. No pneumothorax. Cardiomediastinal contours: Unremarkable Bones: Unremarkable IMPRESSION: Clear lungs. 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 Admit to telemetry unit 2. Breathing treatment 3. Pain control management 4. Management of fluids and electrolytes 5. Consultation for Neurology 6. Diagnostic tests head CT 7. DVT prophylaxis-on aspirin 8. Repeat labs CBC, CMP in a.m. 9. Continue with current medical management 10. Treatment plan discussed with patient and RN. Patient verbalized understanding. Plan discussed with: Patient, Other (RN) My Orders Orders - CAMMY GORMAN DNP Procedure Category Date Status Time Complete Blood Count LAB 07/22/24 Verified 04:00 Comprehensive LAB 07/22/24 Verified Metabolic Panel 04:00 Aspirin Tablet PHA 07/22/24 Verified 10:00 Famotidine Injection PHA 07/22/24 Verified (Pepcid Injection) 10:00 Amlodipine Tablet PHA 07/22/24 Verified (Norvasc Tablet) 01:15 Amlodipine Tablet PHA 07/22/24 Verified (Norvasc Tablet) 10:00 Metoprolol Tartrate PHA 07/22/24 Verified Tablet (Lopressor Ta 10:00 Hydralazine Injection PHA 07/22/24 Verified (Apresoline Inject 01:15 Albuterol Medneb PHA 07/22/24 Verified (Ventolin Medneb) 01:15 Fluoxetine Capsule PHA 07/22/24 Verified (Prozac Capsule) 10:00 Admit ADMIT 07/22/24 Verified 01:06 Allergies VINCENZO 07/22/24 Verified 01:06 Code Status CODE 07/22/24 Verified 01:06 Sodium Chloride Lock PHA 07/22/24 Verified (Saline Lock Ns) 06:00 Oxygen Per Hour RT 07/22/24 Verified 01:06 Hydrocodone-Acet PHA 07/22/24 Verified 5/325mg Tab ([place] 01:15 Ondansetron Hcl PHA 07/22/24 Verified (Zofran) 01:15 Docusate Sodium PHA 07/22/24 Verified Capsule (Colace 01:15 Fall Risk Precautions V[facility]ENZO 07/22/[address] 01:06 Complete Blood Count LAB 07/23/24 Verified 04:00 Comprehensive LAB 07/23/24 Verified Metabolic Panel 04:00 Cardiac DIET 07/22/24 Verified Diet-2gna,Lofat,Lochol Breakfast Condition: Serious [facility]ZO 07/22/24 Verified 01:06 Acetaminophen Tablet PHA 07/22/24 Verified (Tylenol Tablet) 01:15 Maintain Bed Rest [facility] 07/22/24 Verified 01:06 Sequential [facility] 07/22/24 Verified Compression Device Nitroglycerin PHA 07/22/24 Verified Sublingual (Ntrostat 01:15 Morphine Sulfate PHA 07/22/24 Verified Injection 01:15 Stat Ekg For Chest [facility] 07/22/24 Verified Pain 01:06 Notify Of Changes [facility] 07/22/24 Verified From Base 01:06 Perl Software Engineer For [facility] 07/22/24 Verified 24 Hours 01:06 Emergency Dysrhythmia [facility] 07/22/24 Verified Protocol 01:06 Rhythm Strips Once [facility] 07/22/24 Verified Every Shift 01:06 Oxygen By Nasal RT 07/22/24 Verified Cannula 01:06 Problem List: (1) Hypertensive emergency (2) Generalized weakness (3) 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
[2024-07-22] MEDS: amLODIPine BESYLATE 5 MG TAB PO ONE (01:52)
--- NOTE | 2024-07-22 02:10 | DVH ---
EXAM: CT ANGIO HEAD/NECK HISTORY: right sided weakness TECHNIQUE: Helical axial scans of the head and neck obtained during the arterial phase of intravenous contrast enhancement. Multiplanar reformats. Postprocessing MIP and 3-D images. One or more of the f ollowing radiation dose reduction techniques were used for this examination: automated exposure contr ol, adjustment of the mA and/or kV according to patient size, use of iterative reconstruction techniq ue. Determination of the degree of stenosis in the internal carotid arteries is obtained using measureme nts of distal internal carotid diameter (directly or indirectly) as the denominator for stenosis daren urement. The method utilized is similar to that utilized in the [place] Symptomatic Carotid E ndarterectomy Trial (NASCET) method. If the degree of stenosis is greater than 30%, the actual percen tage stenosis is given in the body of the report COMPARISON: Noncontrast head CT obtained earlier the same day. FINDINGS: VISUALIZED AORTIC ARCH: The visualized aortic arch appears normal in caliber. The visualized subclavian arteries appear patent. RIGHT CAROTID SYSTEM CERVICAL: Common carotid artery: Patent Internal carotid artery: Patent External carotid artery: Patent LEFT CAROTID SYSTEM CERVICAL: Common carotid artery: Patent Internal carotid artery: Patent External carotid artery: Patent VERTEBROBASILAR SYSTEM: Right vertebral artery: Patent Left vertebral artery: Patent Basilar artery: Patent RIGHT INTRACRANIAL VASCULATURE Internal carotid artery: Patent Middle cerebral artery: Patent Anterior cerebral artery: Patent LEFT INTRACRANIAL VASCULATURE Internal carotid artery: Patent Middle cerebral artery: Patent Anterior cerebral artery: Patent IMPRESSION: No significant stenoses, occlusions or sizable aneurysmal dilatations identified involving the major cervical and intracranial arterial vasculature. If there is persistent clinical concern, MRI is recommended to further evaluate. HS:Y
[2024-07-22] MEDS: hydrALAZINE HCL 20 MG/ML VL IV PRN (04:46)
[2024-07-22] MEDS: SODIUM CHLOR 0.9% PF (SALINE LOCK) 10ML VIAL/SYR IV SCH (05:18)
[2024-07-22] MEDS ORDERED: TAMS0.4C39 PO (05:33)
[2024-07-22 07:31] LABS: Alanine Aminotransferase 14 U/L (7-40); Albumin 4.5 g/dL (3.2-4.8); Alkaline Phosphatase 94 U/L (46-116); Anion Gap 10 (5-15); Aspartate Aminotransferase 19 U/L (13-40); BUN/Creatinine Ratio 16.1 (10.0-20.0); Blood Urea Nitrogen 18 mg/dL (9-23); Calcium 9.7 mg/dL (8.7-10.4); Carbon Dioxide 28 mmol/L (20-31); Chloride 104 mmol/L (98-107); Glucose 92 mg/dL (74-106); Potassium 3.9 mmol/L (3.5-5.1); Sodium 142 mmol/L (136-145); Total Protein 7.5 g/dL (5.7-8.2)
[2024-07-22 07:32] LABS: Bilirubin, Total 0.8 mg/dL (0.2-1.0)
[2024-07-22 09:00] LABS: Basophils # (auto) 0 10 ^3/uL (0-0.2); Basophils % (auto) 0.3 % (0.0-2.0); Eosinophils # (auto) 0 10 ^3/uL (0-0.8); Hematocrit 52.1 % (41.0-53.0); Hemoglobin 17.6 g/dL (13.5-17.5); Lymphocytes # (auto) 1.6 10 ^3/uL (0.4-5.4); Lymphocytes % (auto) 16.6 % (10.0-50.0); Mean Corpuscular Hemoglobin 29.5 pg (28.0-32.0); Mean Corpuscular Hgb Conc. 33.8 g/dL (32.0-36.0); Mean Corpuscular Volume 87.1 fL (80.0-100.0); Monocytes # (auto) 0.4 10 ^3/uL (0-1.3); Monocytes % (auto) 4.6 % (0.0-12.0); Neutrophils # (auto) 7.4 10 ^3/uL (1.6-8.6); Neutrophils % (auto) 78.5 % (37.0-80.0); Nucleated Red Blood Cells % 0.1 %; Platelet Count (auto) 164 10^3/uL (140-450); Red Blood Cells 5.99 10^6/uL (4.5-5.90); Red Cell Distribution Width 14.6 % (11.8-14.3); White Blood Cell 9.4 10^3/uL (4.4-10.8)
[2024-07-22] MEDS: FAMOTIDINE (10MG/ML) 2ML VL IV SCH (10:00)
[2024-07-22] MEDS: METOPROLOL TARTRATE 50 MG TAB PO SCH (11:00)
[2024-07-22] MEDS: ASPirin 81 mg TAB PO SCH (11:00)
[2024-07-22] MEDS: FLUoxetine HCL 20 MG CAP PO SCH (11:00)
--- NOTE | 2024-07-22 15:56 | DVH ---
MRI BRAIN HEAD WO CONTRAST INDICATION: rule out acute cva EXAM DATE: 07/22/2024 02:46 PM COMPARISON: 07/21/24 PROCEDURE: Using a 1.5 Bhumika scanner, multisequence multiplanar imaging of the brain was obtained. FINDINGS: Subcortical and periventricular white matter changes are nonspecific. The brain otherwise s hows normal morphology and signal characteristics. No abnormal T2 hyperintensity, diffusion restricti on, or susceptibility hypointensity is present. The ventricles are normal in size. The midline struct ures are intact. The major intracranial flow voids are present. The aerated spaces are normal. The or bital contents and extracranial soft tissues appear normal. IMPRESSION: No acute abnormal MRI findings of the brain.
[2024-07-22] MEDS: TAMSULOSIN HYDROCHLORIDE 0.4 MG CAP PO ONE (20:49)
[2024-07-22] MEDS: HYDROcodone-ACET 5/325MG TAB PO PRN (20:49)
[2024-07-23 01:00] VITALS: BP 132/90; PULSE 66; RESP 16; TEMP 98.1; O2SAT 94
[2024-07-23 05:00] VITALS: BP 116/92; PULSE 71; RESP 18; TEMP 98.3; O2SAT 96
[2024-07-23 06:41] LABS: Basophils # (auto) 0 10 ^3/uL (0-0.2); Basophils % (auto) 0.6 % (0.0-2.0); Eosinophils # (auto) 0 10 ^3/uL (0-0.8); Eosinophils % (auto) 0.5 % (0.0-7.0); Hematocrit 47.6 % (41.0-53.0); Hemoglobin 16.1 g/dL (13.5-17.5); Lymphocytes # (auto) 2.6 10 ^3/uL (0.4-5.4); Lymphocytes % (auto) 43.1 % (10.0-50.0); Mean Corpuscular Hgb Conc. 33.7 g/dL (32.0-36.0); Monocytes # (auto) 0.5 10 ^3/uL (0-1.3); Monocytes % (auto) 7.7 % (0.0-12.0); Neutrophils # (auto) 2.9 10 ^3/uL (1.6-8.6); Neutrophils % (auto) 48.1 % (37.0-80.0); Nucleated Red Blood Cells % 0.1 %; Platelet Count (auto) 142 10^3/uL (140-450); Red Blood Cells 5.35 10^6/uL (4.5-5.90); Red Cell Distribution Width 14.4 % (11.8-14.3); White Blood Cell 6.1 10^3/uL (4.4-10.8)
[2024-07-23 07:03] LABS: Albumin 3.9 g/dL (3.2-4.8); Alkaline Phosphatase 78 U/L (46-116); Anion Gap 8 (5-15); Aspartate Aminotransferase 15 U/L (13-40); BUN/Creatinine Ratio 13.3 (10.0-20.0); Bilirubin, Total 0.7 mg/dL (0.2-1.0); Blood Urea Nitrogen 14 mg/dL (9-23); Calcium 9.2 mg/dL (8.7-10.4); Carbon Dioxide 27 mmol/L (20-31); Glucose 85 mg/dL (74-106); Potassium 3.8 mmol/L (3.5-5.1); Sodium 142 mmol/L (136-145); Total Protein 6.7 g/dL (5.7-8.2)
[2024-07-23 07:06] LABS: Alanine Aminotransferase < 9 U/L (7-40); Chloride 107 mmol/L (98-107)
[2024-07-23 08:00] VITALS: PULSE 0; PULSE 95; RESP 18
[2024-07-23 09:00] VITALS: BP 114/73; PULSE 81; RESP 18; TEMP 97.6; O2SAT 94
[2024-07-23] MEDS: amLODIPine BESYLATE 5 MG TAB PO SCH (10:00)
[2024-07-23 11:45] VITALS: O2SAT 96
== END 2024-07-23 12:56 | disposition left against medical advice (07) | DRG 45 ==
LOC: ER 21:33 → OVERFLOW 07-22 01:06 → TELE-EAST 07-22 04:26
PROVIDERS: ADMIT Internal Medicine; ATTEND Internal Medicine
DX: I63.9 Cerebral infarction, unspecified (principal); G81.91 Hemiplegia, unspecified affecting right dominant side; I16.1 Hypertensive emergency; F17.210 Nicotine dependence, cigarettes, uncomplicated; I10 Essential (primary) hypertension; J45.909 Unspecified asthma, uncomplicated; Z53.29 Procedure and treatment not carried out because of patient's decision for other reasons; R29.711 NIHSS score 11
CPT/HCPCS: 36415; 70450; 70496; 70498; 70551; 71045; 80053; 82962; 83735; 83880; 84484; 85025; 85610; 85730; 96374; 96375; 99291; G0378; J2405; J3490